=== PATIENT | male | born 1990 | race African-American/Black ===

== ENCOUNTER 2021-07-15 08:33 | Emergency (ER) | payer MEDICAID ==
[~2021-07-15] VITALS: Ht 177.8 cm; Wt 77.0 kg
[2021-07-15] MEDS ORDERED: KETOROLAC 60MG/2ML VIAL IM ONE (09:00)
[2021-07-15] MEDS ORDERED: IBUP-2029 MT (10:36)
[2021-07-15 10:58] VITALS: BP 124/83
== END 2021-07-15 11:00 | disposition home or self-care (01) ==
LOC: ER 08:46
DX: S43.492A Other sprain of left shoulder joint, initial encounter (principal); R51.9 Headache, unspecified; M54.89 Other dorsalgia; V49.49XA Driver injured in collision with other motor vehicles in traffic accident, initial encounter; Y93.89 Activity, other specified; Y92.488 Other paved roadways as the place of occurrence of the external cause; F12.90 Cannabis use, unspecified, uncomplicated
CPT/HCPCS: 70450; 71045; 73030; 96372; 99284; J1885